=== PATIENT | male | born 1965 | race Caucasian/White ===

== ENCOUNTER 2017-10-15 13:53 | Emergency (ER) | payer SELFPAY ==
--- NOTE | 2017-10-15 14:46 | ED ---
Complex/Multi-Sys Presentation - HPI Summary HPI Summary: This is scribe Jarrell Pena documenting for Jose Herrera M.D. Patient is a 52 y/o M w/ c/o electric shock. Patient was working on metal freezing with live wires next to it around 1330 today. He came in contact with wires and reports current went into left knee and out left hand. Patient estimates voltage between 120-208 V. He reports feeling jittery like he, "drank too much coffee" and states heart is "racing". He states he feels nervous being in hospital. He denies pain. On triage, nothing is noted to aggravate/alleviate Sx. In room, pulse is 98, O2 sat is 97, and BP is 141/93. He reports taking Flonase as needed and Claritin D the past few days. Home medications and allergies are reviewed. I, Dr. Herrera, personally performed the services described in this documentation as scribed in my presence and it is both accurate and complete. - History Of Current Complaint Chief Complaint: EDGeneral Time Seen by Provider: 10/15/17 14:43 Hx Obtained From: Patient Onset/Duration: Sudden Onset, Lasting Hours - incident occurred around 1330 today Timing: Hours - incident occurred 1330 today Severity Currently: None - pain is denied Aggravating Factor(s): nothing Alleviating Factor(s): nothing Associated Signs And Symptoms: Positive: Other - feels nervous, jittery, heart "racing" - Allergies/Home Medications Allergies/Adverse Reactions: Allergies Allergy/AdvReac Type Severity Reaction Status Date / Time MS Carbetapentane Allergy Intermediate Hives Verified 01/10/16 09:37 [From [facility]] MS Chlorpheniramine Allergy Intermediate Hives Verified 01/10/16 09:37 [From [facility]] MS Ephedrine Allergy Intermediate Hives Verified 01/10/16 09:37 [From [facility]] MS Phenylephrine Allergy Intermediate Hives Verified 01/10/16 09:37 [From [facility]] MS Albuterol [Albuterol] AdvReac Intermediate Palpitation Verified 01/10/16 09: 37 s PMH/Surg Hx/FS Hx/Imm Hx Respiratory History: Reports: Hx Asthma - excersized induced Musculoskeletal History: Reports: Hx Back Problems, Hx Orthopedic Injury - R hand injury, Other Musculoskeletal History - L knee meniscus - Surgical History Surgery Procedure, Year, and Place: Umbilical hernia repair-yrs ago. L knee meniscus repair-yrs ago. R hand repair-2011 Hx Anesthesia Reactions: No Infectious Disease History: No Infectious Disease History: Denies: Traveled Outside the [place] in Last 30 Days - Family History Known Family History: Negative: Blood Disorder - Social History Alcohol Use: Weekly Alcohol Amount: 6-8 beers daily Substance Use Type: Reports: None Smoking Status (MU): Never Smoked Tobacco Have You Smoked in the Last Year: No Review of Systems Positive: Other - jittery Positive: Other - feels heart "racing" Positive: Other - nervous being in hospital All Other Systems Reviewed And Are Negative: Yes Physical Exam - Summary Physical Exam Summary: Appearance: The patient is well-nourished in no acute distress and in no acute pain. Skin: The skin is warm and dry and skin color reflects adequate perfusion. HEENT: The head is normocephalic and atraumatic. The pupils are equal and reactive. The conjunctivae are clear and without drainage. Nares are patent and without drainage. Mouth reveals moist mucous membranes and the throat is without erythema and exudate. The external ears are intact. The ear canals are patent and without drainage. The tympanic membranes are intact. Neck: The neck is supple with full range of motion and non-tender. There are no carotid bruits. There is no neck vein distension. Respiratory: Chest is non-tender. Lungs are clear to auscultation and breath sounds are symmetrical and equal. Cardiovascular: Heart is regular rate and rhythm. There is no murmur or rub auscultated. There is no peripheral edema and pulses are symmetrical and equal. Abdomen: The abdomen is soft and non-tender. There are normal bowel sounds heard in all four quadrants and there is no organomegaly palpated. Musculoskeletal: There is no back tenderness noted. Extremities are non-tender with full range of motion. There is good capillary refill. There is no peripheral edema or calf tenderness elicited. Neurological: Patient is alert and oriented to person, place and time. The patient has symmetrical motor strength in all four extremities. Cranial nerves are grossly intact. Deep tendon reflexes are symmetrical and equal in all four extremities. Psychiatric: The patient has an appropriate affect and does not exhibit any anxiety or depression. Triage Information Reviewed: Yes Vital Signs On Initial Exam: Initial Vitals Temp Pulse Resp BP Pulse Ox 98.8 F 114 18 151/104 96 10/15/17 14:00 10/15/17 14:00 10/15/17 14:00 10/15/17 14:00 10/15/17 14:00 Vital Signs Reviewed: Yes Diagnostics - Vital Signs Vital Signs Temp Pulse Resp BP Pulse Ox 10/15/17 14:13 104 20 158/103 97 10/15/17 14:00 98.8 F 114 18 151/104 96 - Laboratory Result Diagrams: 10/15/17 14:52 10/15/17 14:52 Lab Statement: Any lab studies that have been ordered have been reviewed, and results considered in the medical decision making process. - EKG 1427 Cardiac Rate: Tachycardia - rate of 102 BPM EKG Rhythm: Sinus Tachycardia EKG Interpretation: normal EKG Re-Evaluation - Re-Evaluation First Eval Re-Evaluation Time: 15:25 Comment: Discussed results of labs and tests with patient. Patient will be discharged to home and follow up with PCP in 2-3 days. Patient is agreeable with plan. Complex Multi-Symp Course/Dx Course Of Treatment: Mr. Membreno sustained an electrical shock today from his knees to his hand. He feels shaky but otherwise feels okay. He is not sure if it was 208V or 110 V. His evaluation here was within normal limits and he was discharged in good condition - Diagnoses Provider Diagnoses: Electric shock Discharge - Sign-Out/Discharge Documenting (check all that apply): Patient Departure - discharge - Discharge Plan Condition: Stable Disposition: HOME Patient Education Materials: Electrical [place] in Adults (ED) Referrals: [facility] [Outside] - 2 Days Additional Instructions: Follow up with primary care physician in 2-3 days. Return to ED for any new or worsening symptoms. - Billing Disposition and Condition Condition: STABLE Disposition: Home
[2017-10-15 15:02] LABS: ABS Basophils 0.1 10^3/ul (0-0.2); ABS Eosinophils 0.5 10^3/ul (0-0.6); ABS Monocytes 0.7 10^3/ul (0-0.8); ABS Neutrophils 4.7 10^3/ul (1.5-7.7); ABS Nucleated RBC 0 10^3/ul; Eosinophil % 6.4 % (0-6); Hematocrit 41 % (42-52); Hemoglobin 14.7 g/dl (14.0-18.0); Lymphocyte % 24.9 % (25-47); Mean Corpuscular HGB Conc 36 g/dl (31-36); Mean Corpuscular Hemoglobin 32 pg (27-31); Mean Corpuscular Volume 90 fL (80-94); Mean Platelet Volume 7.9 um3 (7.4-10.4); Nucleated Red Blood Cells % 0.1; Platelet Count 292 10^3/ul (150-450); Red Blood Count 4.57 10^6/ul (4.00-5.40); Red Cell Distribution Width 13 % (10.5-15)
[2017-10-15 15:46] VITALS: BP 122/81
== END 2017-10-15 15:45 | disposition home or self-care (01) ==
LOC: ED 13:53
DX: T75.4XXA Electrocution, initial encounter (principal); W86.1XXA Exposure to industrial wiring, appliances and electrical machinery, initial encounter; Y92.9 Unspecified place or not applicable; R45.0 Nervousness
CPT/HCPCS: 36415; 80053; 82550; 85025; 93005; 99283